=== PATIENT | female | born 1960 | race Caucasian/White ===

== ENCOUNTER → 2017-10-31 | Outpatient (CLI) | payer SELFPAY ==
--- NOTE | 2017-10-31 12:05 | Diagnostic Imaging Report ---
PROCEDURE: US Abdomen, limited. TECHNIQUE: Multiple realtime grayscale images were obtained over the abdomen in various projections. INDICATION: Vomiting, epigastric pain. COMPARISON: There are no prior studies available for comparison. FINDINGS: By history, the gallbladder is surgically absent. The common bile duct was not well visualized. The liver is prominent or slightly enlarged measuring 21 cm in maximum length. The liver does seem more echogenic than usually seen. This appearance suggests fatty metamorphosis. There is no focal mass involving the liver and the biliary tree is not abnormally dilated. The pancreas was obscured by bowel gas. The right kidney is unremarkable. IMPRESSION: 1. There is no acute abnormality of the right upper quadrant in this postcholecystectomy patient. The common bile duct was not well visualized however. 2. The liver is borderline enlarged and the echogenic appearance of the liver does suggest fatty metamorphosis. Dictated by: Dictated on workstation # [id number]
== END ==
LOC: RAD 09:06
PROVIDERS: ATTEND Nurse Practitioner Family
DX: R10.13 Epigastric pain (principal); R11.2 Nausea with vomiting, unspecified; Z90.49 Acquired absence of other specified parts of digestive tract
CPT/HCPCS: 76705

== ENCOUNTER → 2019-03-10 | Outpatient (CLI) | payer MEDICARE ==
--- NOTE | 2019-03-10 18:43 | Diagnostic Imaging Report ---
EXAMINATION: Left knee radiographs, 3 views. Right knee radiographs, 3 views. COMPARISON: None. HISTORY: 59-year-old female, bilateral knee pain. FINDINGS: The bones appear demineralized. There is severe tricompartmental joint space loss bilaterally with osteophyte formation. There is no right or left knee joint effusion. There is no identified acute fracture. IMPRESSION: 1. Severe tricompartmental osteoarthritis bilaterally without knee joint effusion. 2. The bones appear demineralized. Dictated by: Dictated on workstation # [id number]
== END ==
LOC: RAD 13:06
PROVIDERS: ATTEND Nurse Practitioner Primary Care
DX: M17.0 Bilateral primary osteoarthritis of knee (principal)

== ENCOUNTER → 2021-08-10 | Outpatient (CLI) | payer MEDICARE ==
[~2021-08-10] MED LIST: CATHETER FLUSH 10 ML SYR IV PRN; REGADENOSON 0.4 MG/5 ML SYR (LEXISCAN) IV ONE
[2021-08-10 09:35] VITALS: BP 170/89
--- NOTE | 2021-08-10 12:16 | Cardiology Stress Test Report ---
Stress Test Report Date of Procedure/Referring: Date of Procedure: Aug 10, 2021 PCP Noah Saldaña MD Admitting Physician Yany Morton DO Indications: HTN Baseline Heart Rate: 72 Baseline Blood Pressure: Blood Pressure Systolic: 170 Blood Pressure Diastolic: 89 Baseline Vitals Vital Signs Date Time Temp Pulse Resp B/P (MAP) Pulse Ox O2 Delivery O2 Flow Rate FiO2 08/10/21 09:35 77 170/89 (116) 98 Baseline EKG: Baseline EKG: NSR Summary After explaining the procedure to the patient, she signed a consent and then brought to the stress nuclear laboratory. Patient received 0.4 mg Lexiscan for stress test, ECG, heart rate and blood pressure were monitored continuously. Resting and stress dose of radio tracer were injected, imaging was acquired and reviewed in short axis, horizontal long axis and vertical long axis views. TID: 1.03 SSS: 11 SDS: 10 EF: 66 1. Patient tolerated Lexiscan well 2. Breast attenuation with reversible ischemia involving the anterior wall and anterior apical segment 3. Normal left ventricular size, EF 66% NOAH SALDAÑA MD Aug 10, 2021 12:16
== END ==
LOC: CARD 08:30
PROVIDERS: ATTEND Internal Medicine Cardiovascular Disease
DX: I10 Essential (primary) hypertension (principal); I25.10 Atherosclerotic heart disease of native coronary artery without angina pectoris
CPT/HCPCS: 78452; 93017; A9502

== ENCOUNTER 2021-08-17 11:23 | Day surgery (SDC) | payer MEDICARE ==
[~2021-08-17] VITALS: Ht 162.6 cm; Wt 135.4 kg
[2021-08-17] VITALS (9 sets, daily range): BP systolic 112–157; BP diastolic 62–88
--- OUTSIDE RECORDS SUMMARY | 2021-08-17 11:27 | XMS REPORT | Clinical Summary ---
Author Author [facility] Organization [facility] Address Unknown Phone Unavailable Care Team Providers Care Neurosurgical Nurse Practitioner Name Role Phone Arabella Cordero APRN-PLUNGER SCOOP OPERATOR Unavailable Nena Latif NP PCP Cecile Azul MD Unavailable Kim Clark POWER SYSTEM ELECTRICAL ENGINEER-PLUNGER SCOOP OPERATOR Unavailable [phone] Paola Aparicio RN Unavailable Unavailable Source Comments Some departments are not documenting in the electronic medical record. If you d o not see the information that you expected, contact Release of Information in [facility] Information Management department at [phone] for further assistan ce in locating additional records.[facility] Allergies Comments Active Allergy Reactions Severity Noted Date Sulfamethoxazole-Trimetho HIVES, MUSCLE 10/06/2013 prim PAIN Ligth-headedness, "felt like going to pass out" Dicyclomine DIZZINESS 10/06/2013 Fluoxetine HIVES 10/06/2013 Penicillins RASH, ITCHING 10/06/2013 Hydrocodone-Acetaminophen RASH, ITCHING 10/06/2013 Medications End Date Status Medication Sig Dispensed Refills Start Date Active metFORMIN (GLUCOPHAGE) Take 500 mg 0 500 mg tablet by mouth daily. Active CHOLESTYRAMINE/ASPARTAME Take by 0 (CHOLESTYRAMINE LIGHT PO) mouth every other day as needed. Active lisinopril/hydrochlorothi Take by 0 azide (ZESTORETIC) mouth daily. 10/12.5 mg tablet Active Problems Problem Noted Date Chronic diarrhea 10/07/2013 Fecal incontinence 10/07/2013 Surgical History Surgery Date Site/Laterality Comments HX CHOLECYSTECTOMY KNEE ARTHROSCOPY HX SOA ENGINEER SURGERY Left and Right HX HYSTERECTOMY HX HEMORRHOIDECTOMY with reported sphincterotom y Medical History Medical History Date Comments Type II diabetes mellitus (HCC) Family History Medical History Relation Name Comments Cancer Father Hodgkins Disease Cancer Maternal Grandfather Inflammatory Bowel Maternal Disease Grandfather Cancer Maternal Grandmother Cancer Mother Lymphoma Colon Polyps Neg Hx Relation Name Status Comments Father Maternal Grandfather Maternal Grandmother Mother Alive Social History Date Tobacco Use Types Packs/Day Years Used Never Smoker Smokeless Tobacco: Never Used Comments Alcohol Use Standard Drinks/Week Rarely Yes 0 (1 standard drink = 0.6 o z pure alcohol) Alcohol Habits Answer Date Recorded How often do you have a drink containing alcohol? No t asked How many drinks containing alcohol do you have on No t asked a typical day when you are drinking? How often do you have six or more drinks on one Not asked occasion? Comment: Rarely 10/07/2013 Sex Assigned at Date Recorded Not on file Last Filed Vital Signs Reading Time Taken Comments Vital Sign 124/81 04/06/2014 8:45 AM CDT Blood Pressure 87 04/06/2014 8:45 AM CDT Pulse 36.7 C (98.1 F) 04/06/2014 8:10 AM CDT Temperature - - Respiratory Rate 97% 04/06/2014 8:45 AM CDT Oxygen Saturation - - Inhaled Oxygen Concentration 133.8 kg (295 lb) 04/06/2014 7:10 AM CDT Weight 162.6 cm (5' 4") 04/06/2014 7:10 AM CDT Height 50.64 04/06/2014 7:10 AM CDT Body Mass Index Plan of Treatment Health Maintenance Due Date Last Done Comments HIV SCREENING 1974 DTAP/TDAP VACCINES (1 - 1977 Tdap) HEPATITIS C SCREENING 1977 PHYSICAL (COMPREHENSIVE) 1977 EXAM SHINGLES RECOMBINANT 2009 VACCINE (1 of 2) BREAST CANCER SCREENING 10/07/2012 10/07/2011 (Previously completed) CERVICAL CANCER SCREENING 08/22/2014 08/22/2011 (Previously completed) INFLUENZA VACCINE 05/22/2021 10/07/2013 (Declined) COLORECTAL CANCER 11/11/2023 11/11/2013, SCREENING 10/07/2011 (Previously completed) Results Not on filefrom Last 3 Months Advance Directives Patient School Bus Attendant Explanation Type Date Recorded Advance 03/24/2014 9:30 AM Directive/DPOA
[2021-08-17] MEDS ORDERED: LIDOCAINE 1% INJ 20 ML 20 ML VIAL ONE (11:39)
[2021-08-17] MEDS ORDERED: NS IV 1000 ML 1,000 ML ONE (11:39)
[2021-08-17] MEDS ORDERED: HEParin (CATH LAB) 2,000 ML IV ONE (11:39)
--- NOTE | 2021-08-17 12:02 | Diagnostic Imaging Report ---
EXAMINATION: Chest 1 view HISTORY: abn stress dyspnea fatigue htn hlp dm COMPARISON: None available. FINDINGS: Heart size is upper limits of normal. The lungs are clear without consolidation, pleural effusion, or pneumothorax. The osseous structures are intact. IMPRESSION: 1. No acute radiographic abnormality in the chest. Dictated by: Dictated on workstation # [id number]
[2021-08-17 12:09] LABS: HEMATOCRIT 48 % (35-52); HEMOGLOBIN 15.3 g/dL (11.5-16.0); MEAN CORPUSCULAR HEMOGLOBIN 30 pg (25-34); MEAN CORPUSCULAR HGB CONC 32 g/dL (32-36); MEAN CORPUSCULAR VOLUME 94 fL (80-99); PLATELET COUNT 384 10^3/uL (130-400); WHITE BLOOD COUNT 9.5 10^3/uL (4.3-11.0)
[2021-08-17 12:23] LABS: PROTHROMBIN TIME PATIENT 13.4 SEC (12.2-14.7)
[2021-08-17 12:26] LABS: ALBUMIN 4.1 GM/DL (3.2-4.5); POTASSIUM 3.7 MMOL/L (3.6-5.0)
[2021-08-17] MEDS ORDERED: fentaNYL INJ 100 MCG/2 ML AMP ONE (12:27)
[2021-08-17] MEDS ORDERED: MIDAZOLAM 5 MG/5 ML (VERSED) VIAL ONE (12:27)
[2021-08-17 12:29] LABS: TOTAL PROTEIN 7.5 GM/DL (6.4-8.2)
[2021-08-17 12:30] LABS: BILIRUBIN,TOTAL 0.7 MG/DL (0.1-1.0)
[2021-08-17 12:32] LABS: CREATININE SERUM 0.73 MG/DL (0.60-1.30)
[2021-08-17] MEDS ORDERED: TRM50T PO (12:40)
[2021-08-17] MEDS ORDERED: HYDR-3817 PO (12:40)
[2021-08-17] MEDS ORDERED: ASPI-1238 PO (12:40)
[2021-08-17] MEDS ORDERED: GABA300C PO (12:40)
[2021-08-17] MEDS ORDERED: CITA40TA11 PO (12:40)
[2021-08-17] MEDS ORDERED: METF-478 PO ×2 (12:40→13:28)
[2021-08-17] MEDS ORDERED: PRAV80TA2 PO (12:40)
[2021-08-17] MEDS ORDERED: CLOP75TA69 PO (12:40)
[2021-08-17] MEDS ORDERED: LOSA1TAB26 PO (12:40)
[2021-08-17] MEDS ORDERED: diphenhydrAMINE 50 MG/ML INJ (BENADRYL) ONE (13:14)
--- NOTE | 2021-08-17 13:26 | Conscious Sedation/ASA ---
Conscious Sedation Pre-Proced Time 12:00 ASA Score 3 For ASA 3 and 4: Consider anesthesia and medical clearance. Also, for patients with a history of failed moderate sedation consider anesthesia. Airway Lungs Heart ASA score ASA 1: a normal healthy patient ASA 2: a patient with a mild systemic disease (mid diabetes, controlled hypertension, obesity x ASA 3: a patient with a severe systemic disease that limits activity (angina, COPD, prior Myocardial infarction) ASA 4: a patient with an incapacitating disease that is a constant threat to life (CHF, renal failure) ASA 5: a moribund patient not expected to survive 24 hrs. (ruptured aneurysm) ASA 6: a declared brain- patient whose organs are being harvested. For emergent operations, add the letter E after the classification Mallampati Classification Grade 3 Sedation Plan Analgesia, Amnesia, Plan communicated to team members, Discussed options with patient/fam, Discussed risks with patient/fam The patient is an appropriate candidate to undergo the planned procedure, sedation, and anesthesia. The patient immediately re-assessed prior to indication. NOAH STRONG MD Aug 17, 2021 13:26
--- NOTE | 2021-08-17 13:29 | Discharge Inst-Post CATH ---
Discharge Inst-CATH/EP Problems Reviewed?: Yes Post Cardiac Cath/EP D/C Inst Follow Up/Plan Hold Metformin for [address] Saldaña's office in 2 to 4 weeks <b>CARDIAC CATH/EP PROCEDURE DISCHARGE INSTRUCTIONS</b> ACTIVITY * Go Home directly and rest. * Limit activity of the leg (or wrist if it was used) for 7 days including aerobics, swimming, jogging, bicycling, etc. * Restrict stair-climbing for 7 days if possible, if not, climb up with your non-cath leg, then bring together on the same step. * Avoid lifting, pushing, pulling or excessive movement of the affected extremity for 7 days. * Customary sexual activity may be resumed after 2 days-use caution not to use a position that strains or causes pain to the affected extremity. * No driving for 24 hours. * NO SMOKING. * Avoid straining for bowel movements for 7 days. * Gentle walking on level ground is allowed. * Returning to work will depend on the type of procedure and the results. Your doctor will discuss this with you. CALL YOUR DOCTOR FOR ANY OF THE FOLLOWING: *If bleeding from the puncture site occurs- Apply gentle pressure to site with clean cloth and call your doctor or EMS. * If a knot or lump forms under the skin, increases in size, or causes pain. * If bruising appears to be worsening or moving further down your leg instead of disappearing. * Temperature above 101 F. CARE OF YOUR GROIN INCISION; * Bruising or purple discoloration of the skin near the puncture site is common. * You may shower only, no bathtub bathing for 5 days. Be careful to avoid slipping as your leg may feel stiff. * If a closure device was used on your femoral artery, please see the attached guide regarding care of the device and your leg. * Leave dressing on FOR 24 hours. CARE OF YOUR WRIST INCISION; * Bruising or purple discoloration of the skin near the puncture site is common. * You may shower. * DO NOT submerge wrist. * Leave dressing on FOR 24 hours. NOAH SALDAÑA MD Aug 17, 2021 13:29
[2021-08-17] MEDS ORDERED: PATIENT MAY USE OWN MEDS, ALL PO SCH (13:30)
[2021-08-17] MEDS ORDERED: NS IV 1000 ML 1,000 ML IV SCH (13:30)
--- NOTE | 2021-08-17 13:33 | Cardiac Cath Report ---
Cardiac Cath Report Physician (s)/Dry Cell Sealer (s) Physician NOAH STRONG MD Pre-Procedure Diagnosis Pre-Procedure Diagnosis: Coronary artery disease Post-Procedure Note Procedure Start Date: Aug 17, 2021 Name of Procedure: Left heart catheterization Findings/Procedure Note PROCEDURE NOTE: 61-year-old lady with history of hypertension, hyperlipidemia and diabetes mellitus, had an abnormal stress test, scheduled for left heart catheterization, possible PTCA. After explaining the procedure to the patient, all pros and cons were explained, all questions were answered. The patient signed the consent and then she was placed on the cardiac catheterization laboratory. Groin was prepped SL fashion local anesthesia was used. Sheath placed in the right femoral artery. Susan right and left catheter were used to access the coronary system. Susan right catheter was prolapsed to the left ventricle pressure was measured no left ventriculogram was done At the end of the procedure the sheath was removed. Closure device was deployed FINDINGS: Hemodynamics LV 184/10, end-diastolic pressure of 10 Aorta 182/73 mean of 125 ANATOMY: Left Main is free of obstructive disease Left Anterior Descending has mild disease nonobstructive disease Left Circumflex has mild disease nonobstructive disease Right Coronary Artery has mild disease nonobstructive disease LV Gram was not done, pressure was measured CONCLUSION: 1. Mild coronary artery disease nonobstructive disease 2. Hypertension noted during the procedure with normal left ventricular end- diastolic pressure DISCUSSION AND RECOMMENDATION: Medical therapy is recommended no intervention is warranted Anesthesia Type: Conscious Sedation Estimated blood loss (mL): 10 ml Contrast Amount: 41 ml Total Radiation Dose: 431 mGy Post-Procedure Diagnosis Post-operative diagnosis: Chest pain Coronary artery disease Hypertension Hyperlipidemia NOAH STRONG MD Aug 17, 2021 13:33
== END 2021-08-17 18:00 | disposition home or self-care (01) ==
LOC: CATH 11:23 → SDC 13:43 → CATH 18:00
PROVIDERS: ATTEND Internal Medicine Cardiovascular Disease
DX: I25.10 Atherosclerotic heart disease of native coronary artery without angina pectoris (principal); I10 Essential (primary) hypertension; I65.23 Occlusion and stenosis of bilateral carotid arteries; E11.9 Type 2 diabetes mellitus without complications; E78.2 Mixed hyperlipidemia; E66.9 Obesity, unspecified; Z79.891 Long term (current) use of opiate analgesic; Z79.84 Long term (current) use of oral hypoglycemic drugs; Z79.899 Other long term (current) drug therapy; Z79.02 Long term (current) use of antithrombotics/antiplatelets; Z68.43 Body mass index [BMI] 50.0-59.9, adult
CPT/HCPCS: 71045; 80053; 80061; 85027; 85610; 85730; 87081; 93458; C1760; C1894; 36415

== ENCOUNTER → 2022-01-31 | Outpatient (CLI) | payer MEDICARE ==
[~2022-01-31] MED LIST changes: +ASPI-1238 PO; -CATHETER FLUSH 10 ML SYR IV PRN; +CITA40TA13 PO; +CLOP75TA69 PO; +GABA300C PO; +HYDR-3817 PO; +LOSA1TAB26 PO; +METF-478 PO; +PRAV80TA2 PO; -REGADENOSON 0.4 MG/5 ML SYR (LEXISCAN) IV ONE; +TRM50T PO
--- NOTE | 2022-01-31 13:04 | Diagnostic Imaging Report ---
INDICATION: Tingling in the left arm. TIME OF EXAM: 12:16 PM. TECHNIQUE: Three views of the cervical spine were obtained. FINDINGS: There is some straightening of the normal cervical lordotic curvature. There is degenerative disc disease at the C4-C5 and C5-C6 levels with disc space narrowing and marginal spurring. The prevertebral tissues are normal. The odontoid appears intact. No fractures are seen. IMPRESSION: Cervical spondylosis. No acute bony abnormality is detected. Dictated by: Dictated on workstation # [id number]
== END ==
LOC: RAD FS 11:52
PROVIDERS: ATTEND Nurse Practitioner Family
DX: M47.812 Spondylosis without myelopathy or radiculopathy, cervical region (principal); R20.2 Paresthesia of skin
CPT/HCPCS: 72040

== ENCOUNTER 2022-03-15 09:30 | Day surgery (SDC) | payer MEDICARE ==
[~2022-03-15] VITALS: Ht 162.5 cm; Wt 134.2 kg
[2022-03-15] MEDS ORDERED: LIDOCAINE 1% INJ 20 ML VIAL ONE (09:57)
[2022-03-15 10:01] VITALS: BP 138/56
[2022-03-15] MEDS ORDERED: LIDOCAINE 1% INJ 20 ML VIAL INJ ONE (10:30)
--- NOTE | 2022-03-15 11:25 | Implantation of Loop Monitor ---
Implant of Loop Monitior IMPLANTATION OF LOOP MONITOR REPORT DATE OF PROCEDURE: 03/15/22 PREOP DIAGNOSIS: Cryptogenic stroke cryptogenic stroke POSTOP DIAGNOSIS: PROCEDURE DETAILS: The patient is a 62 female with history of cryptogenic stroke requiring long- term surveillance. Therefore implantable loop recorder was discussed and agreed with the patient. Informed consent was taken. All risks and complications were discussed at length. The patient was draped and prepped in the usual sterile fashion. Local anesthesia was lidocaine, which was given in the substernal area close to the 4th intercostal space. Loop monitor Loco2 with serial number [id number] was implanted according to the protocol. Steri-Strips were placed at the end of the procedure. There were no complications and the patient tolerated the procedure well. ANESTHESIA: Local anesthesia with lidocaine. COMPLICATIONS: None CONTRAST/FLUOROSCOPY: None CONCLUSION: Successful implantation of loop monitor with no complication FINAL DIAGNOSIS: Cryptogenic stroke Hypertension NOAH STRONG MD March 15, 2022 11:25
== END 2022-03-15 11:30 | disposition home or self-care (01) ==
LOC: CATH 09:30
PROVIDERS: ATTEND Internal Medicine Cardiovascular Disease
DX: I63.531 Cerebral infarction due to unspecified occlusion or stenosis of right posterior cerebral artery (principal); I10 Essential (primary) hypertension; I25.10 Atherosclerotic heart disease of native coronary artery without angina pectoris; I35.8 Other nonrheumatic aortic valve disorders; I65.23 Occlusion and stenosis of bilateral carotid arteries; E11.9 Type 2 diabetes mellitus without complications; E78.2 Mixed hyperlipidemia; E66.9 Obesity, unspecified; Z79.899 Other long term (current) drug therapy; Z79.84 Long term (current) use of oral hypoglycemic drugs; Z79.82 Long term (current) use of aspirin; Z79.02 Long term (current) use of antithrombotics/antiplatelets; Z28.310 Unvaccinated for COVID-19; Z28.9 Immunization not carried out for unspecified reason; Z68.43 Body mass index [BMI] 50.0-59.9, adult
CPT/HCPCS: 33285; C1764

== ENCOUNTER → 2023-07-25 | Outpatient (CLI) | payer MEDICARE ==
[~2023-07-25] MED LIST changes: +CLOP-31 PO; -CLOP75TA69 PO
--- NOTE | 2023-07-25 11:50 | Diagnostic Imaging Report ---
INDICATION: History of kidney stone. COMPARISON: None FINDINGS: Single frontal radiographic view of the abdomen was obtained. Small bowel loops are nondilated. Rounded opacity is noted projecting over the upper pole of the right renal shadow. Smaller foci are noted projecting over the lower pole as well. These could be on the basis of renal calculi, although superimposed enteric or colonic debris is also a consideration. Known unexpected foreign bodies are seen. IMPRESSION: 1. Right renal calculi versus artifact related to superimposed enteric or colonic debris. 2. Nonobstructed small bowel gas pattern. Dictated by: Dictated on workstation # [id number]
== END ==
LOC: RAD FS 09:59
PROVIDERS: ATTEND Urology
DX: N20.0 Calculus of kidney (principal)
CPT/HCPCS: 74018